=== PATIENT | female | born 1940 | race Caucasian/White ===

== ENCOUNTER 2022-06-23 12:15 | Emergency (ER) | payer MEDICARE, OTHER ==
[~2022-06-23] VITALS: Ht 154.9 cm; Wt 120.6 kg
[2022-06-23 12:35] LABS: BASOPHILS # (AUTO) 0.1 X10'3 (0-0.2); EOSINOPHILS # (AUTO) 0.1 X10'3 (0-0.9); EOSINOPHILS % (AUTO) 0.9 % (0-6); HEMATOCRIT 37.4 % (35.0-45.0); HEMOGLOBIN 12.3 g/dl (12.0-16.0); LYMPHOCYTES # (AUTO) 1.9 X10'3 (1.1-4.8); MEAN CORPUSCULAR HEMOGLOBIN 31.7 PG (27.0-31.0); MEAN CORPUSCULAR VOLUME 96.1 FL (78-98); MEAN PLATELET VOLUME 9.7 FL (7.4-10.4); MONOCYTES # (AUTO) 0.4 X10'3 (0-0.9); NEUTROPHILS # (AUTO) 5.4 X10'3 (1.8-7.7); NEUTROPHILS % (AUTO) 69.1 % (42-75); PLATELET COUNT 174 X10'3 (140-440); RED BLOOD COUNT 3.89 X10'6 (4.20-5.60); RED CELL DISTRIBUTION WIDTH 13.7 % (11.5-14.5); WHITE BLOOD COUNT 7.8 X10'3 (4.5-11.0)
[2022-06-23 12:50] LABS: ALANINE AMINOTRANSFERASE 16 U/L (12-78); ALBUMIN 3.5 G/DL (3.4-5.0); ALKALINE PHOSPHATASE 84 IU/L (46-116); ANION GAP 7 (8-16); ASPARTATE AMINO TRANSFERASE 15 U/L (10-37); BILIRUBIN,TOTAL 0.8 MG/DL (0.1-1.0); BLOOD UREA NITROGEN 25 MG/DL (7-18); CALCIUM 9.2 MG/DL (8.5-10.1); CHLORIDE 108 MMOL/L (99-107); CREATININE 1.67 MG/DL (0.40-0.90); GLUCOSE 140 MG/DL (70-104); POTASSIUM 4.4 MMOL/L (3.5-5.1); SODIUM 145 MMOL/L (135-145); eGFR 29 ML/MIN
[2022-06-23] MEDS ORDERED: diltiazem 5mg/ml 5ml inj. IV ONE (13:02)
[2022-06-23 13:38] LABS: MAGNESIUM 1.8 MG/DL (1.5-2.4)
[2022-06-23] MEDS ORDERED: magnesium 2GM in 50ml NS 50 ML IV ONE (14:00)
[2022-06-23] MEDS ORDERED: apixaban 5mg tablet PO ONE (14:10)
[2022-06-23] MEDS ORDERED: amiodarone 200mg tablet PO ONE (14:10)
[2022-06-23] MEDS ORDERED: APIX5TAB3 PO (14:38)
[2022-06-23] MEDS ORDERED: AMIO200T61 PO (14:38)
[2022-06-23 15:12] VITALS: BP 122/84
== END 2022-06-23 15:15 | disposition home or self-care (01) ==
LOC: ER 12:15
DX: I48.20 Chronic atrial fibrillation, unspecified (principal)
CPT/HCPCS: 36415; 71045; 80053; 82948; 83735; 83880; 84439; 84443; 84484; 85025; 93005; 96374; 99285; J3490

== ENCOUNTER 2022-09-07 11:47 | Emergency (ER) | payer MEDICARE, OTHER ==
[~2022-09-07] VITALS: Ht 152.4 cm; Wt 124.8 kg
[~2022-09-07 11:47] MED LIST: APIX5TAB3 PO
[2022-09-07 12:26] LABS: BASOPHILS # (AUTO) 0.1 X10'3 (0-0.2); BASOPHILS % (AUTO) 0.9 % (0-1); EOSINOPHILS % (AUTO) 0.7 % (0-6); HEMATOCRIT 41.8 % (35.0-45.0); HEMOGLOBIN 13.6 g/dl (12.0-16.0); LYMPHOCYTES # (AUTO) 1.6 X10'3 (1.1-4.8); LYMPHOCYTES % (AUTO) 24.3 % (21-51); MEAN CORPUSCULAR HEMOGLOBIN 30.8 PG (27.0-31.0); MEAN CORPUSCULAR HGB CONC 32.6 g/dL (33.0-36.5); MEAN CORPUSCULAR VOLUME 94.4 FL (78-98); MEAN PLATELET VOLUME 9.7 FL (7.4-10.4); MONOCYTES # (AUTO) 0.4 X10'3 (0-0.9); MONOCYTES % (AUTO) 5.8 % (2-12); NEUTROPHILS # (AUTO) 4.5 X10'3 (1.8-7.7); NEUTROPHILS % (AUTO) 68.3 % (42-75); PLATELET COUNT 122 X10'3 (140-440); RED BLOOD COUNT 4.43 X10'6 (4.20-5.60); RED CELL DISTRIBUTION WIDTH 14.8 % (11.5-14.5); WHITE BLOOD COUNT 6.6 X10'3 (4.5-11.0)
[2022-09-07 12:44] LABS: ALANINE AMINOTRANSFERASE 21 U/L (12-78); ALBUMIN 3.9 G/DL (3.4-5.0); ALBUMIN/GLOBULIN RATIO 1.1 (1.1-1.5); ALKALINE PHOSPHATASE 89 IU/L (46-116); ANION GAP 8 (8-16); ASPARTATE AMINO TRANSFERASE 18 U/L (10-37); BILIRUBIN,TOTAL 1.1 MG/DL (0.1-1.0); BLOOD UREA NITROGEN 23 MG/DL (7-18); BUN/CREATININE RATIO 16.5 (6.6-38.0); CALCIUM 9.5 MG/DL (8.5-10.1); CHLORIDE 103 MMOL/L (99-107); CREATININE 1.39 MG/DL (0.40-0.90); GLUCOSE 152 MG/DL (70-104); MAGNESIUM 1.7 MG/DL (1.5-2.4); SODIUM 141 MMOL/L (135-145); TOTAL CARBON DIOXIDE 29.8 MMOL/L (24-32); TOTAL PROTEIN 7.5 G/DL (6.4-8.2); eGFR 36 ML/MIN
[2022-09-07] MEDS: metoprolol tartrate 1mg/ml inj IV SCH ×2 (15:03→16:13)
--- NOTE | 2022-09-07 15:38 | NUR ---
CALLED DR. GARCIA [id number]
--- NOTE | 2022-09-07 15:40 | NUR ---
CALLED DR. GARCIA [address]ND PAGE [id number]. NO ANSWER AFTER ON HOLD FOR [address] GARCIA WAS NOTIFIDED
[2022-09-07 16:42] VITALS: BP 187/125
== END 2022-09-07 16:44 | disposition home or self-care (01) ==
LOC: ER 11:48
DX: I48.91 Unspecified atrial fibrillation (principal); R60.9 Edema, unspecified
CPT/HCPCS: 36415; 71045; 80053; 83735; 83880; 84484; 85025; 93005; 96374; 96376; 99285; J3490

== ENCOUNTER 2024-02-24 22:31 | Emergency (ER) | payer MEDICARE ==
[~2024-02-24] VITALS: Ht 152.4 cm; Wt 116.0 kg
[~2024-02-24 22:31] MED LIST changes: -APIX5TAB3 PO; +BUPR-72 PO; +CARSR60C PO; +CARV-50 PO; +FURO-149 PO; +FURO-150 PO; +POTA10CA95 PO; +PRAV40TA3 PO; +RIVA20TA PO; +SYN0.088T PO
[2024-02-24 23:43] LABS: ALANINE AMINOTRANSFERASE 23 U/L (12-78); ALBUMIN 3.5 G/DL (3.4-5.0); ALBUMIN/GLOBULIN RATIO 0.9 (1.1-1.5); ALKALINE PHOSPHATASE 142 IU/L (46-116); ANION GAP 2 (8-16); ASPARTATE AMINO TRANSFERASE 12 U/L (10-37); BILIRUBIN,TOTAL 0.9 MG/DL (0.1-1.0); BLOOD UREA NITROGEN 23 MG/DL (7-18); BUN/CREATININE RATIO 17.7 (10.0-20.0); CALCIUM 9.3 MG/DL (8.5-10.1); CHLORIDE 105 MMOL/L (99-107); GLUCOSE 163 MG/DL (70-104); POTASSIUM 4.4 MMOL/L (3.5-5.1); SODIUM 142 MMOL/L (135-145); TOTAL PROTEIN 7.4 G/DL (6.4-8.2); eGFR 39 ML/MIN
[2024-02-24 23:50] LABS: PRO BRAIN NATRIURETIC PEPTIDE 2037 PG/ML (0-450)
[2024-02-25 00:44] LABS: MEAN CORPUSCULAR HEMOGLOBIN 30.9 PG (27.0-31.0)
[2024-02-25 00:46] LABS: BASOPHILS % (AUTO) 0.7 % (0-1); EOSINOPHILS # (AUTO) 0.1 X10'3 (0-0.9); EOSINOPHILS % (AUTO) 1.1 % (0-6); HEMATOCRIT 40.8 % (35.0-45.0); HEMOGLOBIN 13.5 g/dl (12.0-16.0); LYMPHOCYTES # (AUTO) 2.3 X10'3 (1.1-4.8); LYMPHOCYTES % (AUTO) 30.9 % (21-51); MEAN CORPUSCULAR VOLUME 93.6 FL (78-98); MONOCYTES # (AUTO) 0.5 X10'3 (0-0.9); NEUTROPHILS # (AUTO) 4.4 X10'3 (1.8-7.7); NEUTROPHILS % (AUTO) 60.3 % (42-75); RED BLOOD COUNT 4.36 X10'6 (4.20-5.60); RED CELL DISTRIBUTION WIDTH 14.5 % (11.5-14.5); WHITE BLOOD COUNT 7.3 X10'3 (4.5-11.0)
[2024-02-25 01:00] LABS: PLATELET COUNT 163 X10'3 (140-440)
[2024-02-25] MEDS: diltiazem 30mg tablet PO ONE (02:29)
[2024-02-25 03:10] VITALS: BP 132/79; PULSE 125; RESP 18; TEMP 97.9; O2SAT 96
== END 2024-02-25 03:12 ==
LOC: ER 22:31
DX: R60.0 Localized edema (principal); M79.89 Other specified soft tissue disorders; I48.91 Unspecified atrial fibrillation; J44.9 Chronic obstructive pulmonary disease, unspecified; Z79.899 Other long term (current) drug therapy
CPT/HCPCS: 36415; 71045; 80053; 83605; 83880; 84145; 84484; 85025; 87040; 93005; 99285